=== PATIENT | male | born 1990 | race Two or more races ===

== ENCOUNTER 2022-03-23 15:16 | Emergency (ER) | payer OTHER ==
[~2022-03-23] VITALS: Ht 195.6 cm; Wt 72.7 kg
== END 2022-03-23 18:17 | disposition home or self-care (01) ==
LOC: ER 15:17
DX: H93.11 Tinnitus, right ear (principal); Z59.00 Homelessness unspecified; Z56.0 Unemployment, unspecified
CPT/HCPCS: 99281; 99282